=== PATIENT | female | born 1950 | race Caucasian/White ===

== ENCOUNTER 2023-05-28 11:36 | Day surgery (SDC) | payer OTHER ==
[~2023-05-28] VITALS: Ht 157.5 cm; Wt 72.5 kg
[~2023-05-28 11:36] MED LIST: CALCAVITD; Chondroitin Su250 MG; DAILY MULTIPLE1 EACH; FISH1000; GLUC500; HYDR1TAB94; LEVSOD50 PO; LISI5 PO; OMEP20ER; Pravastatin Sod40 MG PO; Triamterene W/1 EACH PO
[2023-05-28] MEDS ORDERED: ROSUVASTATIN CA20 MG PO (12:37)
[2023-05-28] MEDS ORDERED: LOSARTAN POTASS25 M2 PO (12:38)
[2023-05-28] MEDS ORDERED: KLOR-CON 1010 ME9 PO (12:40)
[2023-05-28 15:58] VITALS: BP 151/75
== END 2023-05-28 16:33 | disposition home or self-care (01) ==
LOC: ORSCSDS 11:36
PROVIDERS: Podiatrist Foot & Ankle Surgery
PROC: 0QSQ04Z Reposition Right Toe Phalanx with Internal Fixation Device, Open Approach (ICD-10-PCS; principal; 2023-05-28 13:00)
PROC: 0SGK04Z Fusion of Right Tarsometatarsal Joint with Internal Fixation Device, Open Approach (ICD-10-PCS; principal; 2023-05-28 13:00)
DX: M21.611 Bunion of right foot (principal); I10 Essential (primary) hypertension; E78.5 Hyperlipidemia, unspecified; K21.9 Gastro-esophageal reflux disease without esophagitis; E03.9 Hypothyroidism, unspecified; Z79.899 Other long term (current) drug therapy
CPT/HCPCS: A9270; C1713; J0171; J0330; J0690; J1100; J1170; J1885; J2405; J2704; J2795; J3010; J7120